=== PATIENT | female | born 1945 | race African-American/Black ===

== ENCOUNTER 2018-08-19 18:57 | Emergency (ER) | payer MEDICARE, OTHER ==
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
== END 2018-08-19 21:00 | disposition home or self-care (01) ==
LOC: ERS 18:57
DX: M54.2 Cervicalgia (principal); M54.5 Low back pain; E78.00 Pure hypercholesterolemia, unspecified; Z79.899 Other long term (current) drug therapy; V63.6XXA Passenger in heavy transport vehicle injured in collision with car, pick-up truck or van in traffic accident, initial encounter
CPT/HCPCS: 72125; 72131